=== PATIENT | male | born 1975 | race Caucasian/White ===

== ENCOUNTER 2025-08-09 09:51 | Emergency (ER) | payer BC, SELFPAY ==
[2025-08-09 09:53] VITALS: BP 187/98
--- NOTE | 2025-08-09 10:11 | ED.GENMED ---
History of Present Illness
General
Chief Complaint: Back Pain
Source: patient
Exam Limitations: none
Time Seen by Provider: 08/09/25 10:10
Nursing documentation reviewed up to this point in time: agreed with
History of Present Illness
History of Present Illness:
50-year-old male with anxiety, presents for right low back pain radiating up to upper back at times, frequently over the past week.
He sees chiropractor 2-3 times a weeks routinely
Does 'rigorous' workout 5-6 days a week.
One week ago after his chiropractic visit felt discomfort in right lower back. By that evening had severe spasms from R low back up to R shoulder. Took Aleve with little relief.
Went to 5 days ago and given Medrol dose pack which he finished and Flexeril which he's been taking 2-3 doses daily with some relief. Started to feel much better, even pain free for a while yesterday until driving home 4 p.m, pain slowly
returned R lower back but without the radiation to upper back.
Had multiple severe spasms during last night, worse with movement, taking deep breaths, had to sleep in sitting up position for comfort.
Pain worse laying on right side.
Has been applying ice and heat, feels somewhat better in the mornings, pain increasing as day progresses, nights are worst.
Has been continuing stretching, bending, lunges and squats through all of this but no weights.
Past History
Past History
ED Past Medical History: Other (History of mild anxiety) and Other (diverticulitis)
ED Past Surgical History: Other (Hernia surgery)
Social History
Tobacco: Non-smoker
Alcohol: None
Drug: None
Personal:
Living: with family
Employment: Employed
Review of Systems
Review of Systems
Allergies reviewed?: Yes
All Other Systems: ROS reviewed and negative except as documented in HPI and ROS
Constitutional: Denies fever
Respiratory: Denies trouble breathing
Cardiac: Denies chest pain
ABD/GI: Denies abdominal pain
: Denies dysuria or bleeding
Musculoskeletal: Reports back pain (R low back pain)
Skin: Reports no symptoms
Phy Exam
Physical Exam
Physical Exam:
GENERAL: No acute distress. A&Ox3.
CONSTITUTIONAL: Afebrile.
EYES: clear, conjunctivae normal
ENMT: moist mucus membranes
RESPIRATORY: Regular respirations, nonlabored, lungs clear.
CARDIOVASCULAR: Regular rate and rhythm, no murmurs, no rubs.
GI: Soft, nontender, normal BS
MUSCULOSKELETAL: Pain immediately reproducible with palpation of the right lower lateral back soft tissues, just above the pelvis. Rest of back nontender. moves with ease. Well perfused.
SKIN: Warm, dry, pink
PSYCH: Normal mood and affect. Well kept, interactive and appropriate
NEUROLOGIC: Awake, alert and oriented. No focal neurological deficits
Course
Orders/Labs/Results
Orders:
Orders
08/09/25 11:01
Complete Blood Count/With Diff Urgent
Comprehensive Metabolic Panel Urgent
Urinalysis Reflex To Culture Urgent
Date Specimen was Collected: 08/09/25
Time Specimen was Collected: 10:55
08/09/25 11:56
Ketorolac [Toradol] 15 mg IV NOW STA
Abnormal Lab Results
08/09/25
11:01
RBC 4.15 L 10^6/uL
(4.70-6.10)
Hct 37.9 L %
(39.0-52.0)
MCH 33.0 H pg
(27.0-31.0)
Absolute Neuts (auto) 8.2 H 10^3/uL
(1.4-6.5)
Absolute Lymphs (auto) 0.9 L 10^3/uL
(1.2-3.4)
Absolute Monos (auto) 0.7 H 10^3/uL
(0.1-0.6)
Neutrophils % 82.2 H %
(42.2-75.2)
Lymphocytes % 8.9 L %
(20.5-51.1)
Carbon Dioxide 31 H mmol/L
(22-30)
Glucose 125 H mg/dl
(70-99)
AST 14 L U/L
(17-59)
08/09/25 11:01
08/09/25 11:01
Vital Signs
Initial and Last Documented VS:
Initial Vital Signs
Temp Pulse Resp BP Pulse Ox
98.0 F 87 16 187/98 96
08/09/25 09:53 08/09/25 09:53 08/09/25 09:53 08/09/25 09:53 08/09/25 09:53
Last Documented Vital Signs
Temp Pulse Resp BP Pulse Ox
98.0 F 87 16 146/88 94
08/09/25 09:53 08/09/25 09:53 08/09/25 09:53 08/09/25 11:03 08/09/25 11:04
MDM/Problems Addressed
Differential Diagnosis Includes:
Musculoskeletal pain, kidney stone
MDM/Problems Addressed:
50-year-old male with anxiety, presents for right low back pain radiating up to upper back at times, frequently over the past week.
He sees chiropractor 2-3 times a weeks routinely
Does 'rigorous' workout 5-6 days a week.
One week ago after his chiropractic visit felt discomfort in right lower back. By that evening had severe spasms from R low back up to R shoulder. Took Aleve with little relief.
Went to 5 days ago and given Medrol dose pack which he finished and Flexeril which he's been taking 2-3 doses daily with some relief. Started to feel much better, even pain free for a while yesterday until driving home 4 p.m, pain slowly
returned R lower back but without the radiation to upper back.
Had multiple severe spasms during last night, worse with movement, taking deep breaths, had to sleep in sitting up position for comfort.
Pain worse laying on right side.
Has been applying ice and heat, feels somewhat better in the mornings, pain increasing as day progresses, nights are worst.
Has been continuing stretching, bending, lunges and squats through all of this but no weights.
He went on computer and is concerned re: kidney stone, appendicitis, mentions hx diverticulitis
Afebrile, NAD
No significant pain now (11/14). Pain reproducible with palpation.
Abdomen benign, no indication of appendicitis or diverticulitis
CBC with no clinically significant abnormality
CMP normal
U/A neg
In to discuss normal results with patient.
DX: R low back pain with intermittent muscle spasm. Musculoskeletal pain.
Rx for Flexeril and Toradol sent to his pharmacy. He has a stim machine he can use.
Pt is moving around comfortably.
Ambulated out with normal gait.
*Pulse Oximetry
SaO2: 96
Oxygen Mode of Delivery: Room air
Patient hypoxic: not evaluated
*Critical Care Note
Total Time (30-74mins, 75-104mins- exclusive of procedures): Not Applicable
ED Attending Note
-
Portions of this chart may have been created with voice recognition software.� Occasional wrong word or��sound alike� substitutions may have occurred due to the inherent limitations of voice recognition software.
Discharge Plan
Departure
Patient Disposition: Home (Routine Discharge)
Date of Disposition: 08/09/25
Time of Disposition: 12:00
Patient with high blood pressure during this ER visit?: No
Condition: Good
Discharge Problem:
Low back pain
Instructions: Low Back Pain (DC)
Prescriptions:
New
ketorolac 10 mg tablet
10 mg PO Q8H PRN (Reason: back pain/spasms) 5 Days Qty: 20 0RF
cyclobenzaprine 10 mg tablet
10 mg PO Q8H Qty: 20 0RF
No Action
Paxil:
1 tab PO DAILY
metronidazole 500 MG tablet
500 mg PO Q8 Qty: 30 0RF
ciprofloxacin HCl 500 MG tablet
500 mg PO Q12 Qty: 20 0RF
oxycodone-acetaminophen 1 TABLET tablet
1 - 2 tab PO Q4HPRN PRN (Reason: prn for pain) Qty: 20 0RF
Referrals:
Wesley Casas, DO [Family Provider, Family Practice] - As needed
Activity Restrictions/Additional Instructions:
As we discussed, take the Toradol every 8 hours for the next 2 days, then as needed.
Use the Flexeril (Cyclobenzaprine) as needed for muscle tightness/spasm. this can make your sleepy and slow the reflexes so do not drive or operate any machinery withint 8 hours of taking it.
Heating pad at night
NO exercising for the next 5 days, GENTLE stretches ok. Avoid long car rides for the rest of this week.
Interventions
Interventions:
*Risk Screen - Suicide Last Done: 08/09/25 10:58
*General Assessment Last Done: 08/09/25 10:58
*Neglect/Abuse Screening Last Done: 08/09/25 10:58
*ED COVID-19 Vaccine History Last Done: 08/09/25 10:58
*ED Influenza Vaccine History Last Done: 08/09/25 10:58
[facility] Fall Risk Assessment Tool Last Done: 08/09/25 10:58
*Nursing Disposition Last Done: 08/09/25 12:16
ED-Musculoskeletal Assessment Last Done: 08/09/25 10:58
Discharge Date and Time
Discharge Date/Time: 08/09/25 12:25
Print Language: SAMMARINESE
[2025-08-09 10:58] VITALS: BMI 29.8
[2025-08-09 11:03] VITALS: BP 146/88
[2025-08-09 11:21] LABS: Hematocrit 37.9 % (39.0-52.0); Hemoglobin 13.7 g/dL (13.0-18.0); Mean Corp Hgb Conc. 36.1 g/dL (33.0-37.0); Mean Corpuscular Volume 91.3 fL (80.0-94.0); Nucleated Red Blood Cells % 0 % (-); Platelet Count 272 10^3/uL (130-400); Red Cell Dist. Width 12.1 % (11.5-14.5)
[2025-08-09 11:23] LABS: Urine Character Clear (Clear)
[2025-08-09 11:34] LABS: ALT (SGPT) 21 U/L (0-50); AST (SGOT) 14 U/L (17-59); Albumin 3.7 g/dl (3.5-5.0); Alkaline Phosphatase 79 U/L (38-126); Blood Urea Nitrogen 17 mg/dl (9-20); Calcium 8.8 mg/dl (8.4-10.2); Carbon Dioxide 31 mmol/L (22-30); Chloride 102 mmol/L (98-107); Estimated Creatinine Clearance > 125 ml/min; Glucose 125 mg/dl (70-99); Potassium 4.6 mmol/L (3.5-5.1); Sodium 136 mmol/L (135-145); Total Protein 6.5 g/dl (6.3-8.2); eGFR > 60.00
[2025-08-09] MEDS: TORADOL 15 MG IV (12:10)
== END 2025-08-09 12:25 | disposition home or self-care (01) ==
LOC: EMR 09:51
PROVIDERS: Registered Nurse; EMERGENCY PHYSICIAN Emergency Medicine; FAMILY PHYSICIAN Family Medicine
DX: M54.50 Low back pain, unspecified (principal); F41.9 Anxiety disorder, unspecified
CPT/HCPCS: 99284; 96374; 80053; 81003; 85025